=== PATIENT | female | born 1935 | race African-American/Black ===

== ENCOUNTER → 2022-03-21 | Outpatient (CLI) | payer MEDICARE, BC ==
[~2022-03-21] MED LIST: AMLO5TAB4 PO; ASPI-986 PO; EVOL140S2 SQ; LOSA25TA26 PO; MULT-1146 PO
== END | disposition home or self-care (01) ==
LOC: MRI 13:45
PROVIDERS: ATTEND Internal Medicine Nephrology
DX: M75.121 Complete rotator cuff tear or rupture of right shoulder, not specified as traumatic (principal); M25.411 Effusion, right shoulder; M70.22 Olecranon bursitis, left elbow; Y93.89 Activity, other specified
CPT/HCPCS: 73080; 73221

== ENCOUNTER → 2022-03-26 | Outpatient (CLI) | payer MEDICARE, BC | END | disposition home or self-care (01) | LOC: RAD 10:46 | PROVIDERS: ATTEND Orthopaedic Surgery | DX: M25.511 Pain in right shoulder (principal) | CPT/HCPCS: 73030 ==

== ENCOUNTER 2022-05-27 13:44 | Inpatient (IN) | payer MEDICARE, BC ==
[~2022-05-27] VITALS: Ht 157.5 cm; Wt 74.0 kg
[2022-05-27 16:34] LABS: BASOPHILS % 0.3 % (0.0-2.0); EOSINOPHILS % 1.5 % (0.0-5.0); HEMATOCRIT. 42.6 % (36.0-48.0); HEMOGLOBIN. 13.1 g/dL (12.0-16.0); LYMPHOCYTES % 17.1 % (20.0-50.0); MEAN CORPUSCULAR HEMOGLOBIN 26.4 pg (28.0-32.0); MEAN CORPUSCULAR VOLUME 85.6 fL (81.0-99.0); MEAN PLATELET VOLUME 7.7 fl (7.4-10.4); MONOCYTES % 9.1 % (2.0-8.0); PLATELET 214 x1000/uL (130-400); RED BLOOD CELL COUNT 4.97 mill/uL (4.2-5.4); RED CELL DISTRIBUTION WIDTH 18.7 % (11.6-14.6)
[2022-05-27 16:48] LABS: CHLORIDE 113 mEq/L (98-107)
[2022-05-27 18:05] LABS: CLARITY URINE CLEAR (CLEAR); COLOR URINE YELLOW (YELLOW); KETONES URINE NEGATIVE (NEGATIVE); LEUKOCYTE ESTERASE URINE TRACE (NEGATIVE); NITRITE URINE NEGATIVE (NEGATIVE); OCCULT BLOOD URINE 1+ (NEGATIVE); PH URINE 5.5 (4.5-8.0); PROTEIN URINE TRACE (NEGATIVE); SPECIFIC GRAVITY URINE 1.015 (1.005-1.030); UROBILINOGEN URINE 0.2 E.U./dL (0.2-1.0)
[2022-05-27] MEDS: CITRIC ACID/SODIUM CITRATE SOLN 30ML UDC PO SCH (18:15)
[2022-05-27] MEDS ORDERED: ZOLPIDEM TARTRATE 5MG TABLET PO PRN (18:15)
[2022-05-27] MEDS ORDERED: SODIUM POLYSTYRENE SULFONATE 15 G/60 ML BOT PO NR (18:15)
[2022-05-27] MEDS ORDERED: NA PHOS,M-B/NA PHOS,DI-BA ENEMA 118ML PR PRN (18:15)
[2022-05-27] MEDS ORDERED: DOCUSATE SODIUM 100MG CAPSULE PO PRN (18:15)
[2022-05-27] MEDS ORDERED: GUAIFENESIN 200MG/10ML SUGAR FREE UDC PO PRN (18:15)
[2022-05-27] MEDS ORDERED: MAGNESIUM/ALUMINUM HYDROXIDE/SIMETHICONE 30ML UDC PO PRN (18:15)
[2022-05-27] MEDS ORDERED: CLONIDINE 0.1MG TABLET PO PRN (18:15)
[2022-05-27] MEDS ORDERED: IPRATROPIUM/ALBUTEROL 0.5-3(2.5)MG/3ML NEB NEB PRN (18:15)
[2022-05-27] MEDS ORDERED: ONDANSETRON HCL 4MG/2ML INJ IV PRN (18:15)
[2022-05-27] MEDS ORDERED: TRAMADOL 50MG TABLET PO PRN (18:15)
[2022-05-27] MEDS ORDERED: ACETAMINOPHEN 325MG TABLET PO PRN (18:15)
[2022-05-27] MEDS ORDERED: CITRIC ACID/SODIUM CITRATE SOLN 15ML UDC PO SCH (18:15)
[2022-05-27] MEDS ORDERED: NITROGLYCERIN 0.4MG TABLET SL SL PRN (18:15)
[2022-05-27] MEDS: ACETAMINOPHEN 325MG TABLET PO PRN (19:06)
[2022-05-27] MEDS ORDERED: AZITHROMYCIN 500 MG in DEXT 5% WATER 250 ML IV SCH (20:00)
[2022-05-27 20:21] LABS: *AMPHETAMINES SCREEN URINE NEGATIVE (NEGATIVE); *BARBITURATES SCREEN URINE NEGATIVE (NEGATIVE); *BENZODIAZEPINES SCREEN URINE NEGATIVE (NEGATIVE); *COCAINE SCREEN URINE NEGATIVE (NEGATIVE); CANNABINOID URINE SCREEN NEGATIVE (NEGATIVE); METHADONE URINE SCREEN NEGATIVE (NEGATIVE); OPIATES URINE SCREEN NEGATIVE (NEGATIVE); PHENCYCLIDINE URINE SCREEN NEGATIVE (NEGATIVE)
[2022-05-27 20:33] LABS: CREATINE KINASE 48 IU/L (26-192); CREATINE KINASE MB FRACTION < 1.0 ng/mL (0.5-3.6)
[2022-05-27] MEDS ORDERED: ENOXAPARIN 80MG/0.8ML SYR SUBCUT NR (20:35)
[2022-05-27] MEDS: ASCORBIC ACID 500 MG TABLET PO SCH (21:00)
[2022-05-27] MEDS: ATORVASTATIN CALCIUM 20MG TABLET PO SCH (21:00)
[2022-05-27] MEDS: FAMOTIDINE 20MG TABLET PO SCH (21:00)
[2022-05-27] MEDS ORDERED: ENOXAPARIN 30MG/0.3ML SYR SUBCUT SCH (21:00)
[2022-05-27] MEDS: GUAIFENESIN/DM 600MG/30MG ER TAB 12HR PO SCH (21:00)
[2022-05-27] MEDS ORDERED: CEFTRIAXONE 1,000 MG in DEXTROSE 5% WATER 50 ML IV SCH (21:00)
[2022-05-28 00:11] VITALS: BP 144/70
[2022-05-28 06:18] LABS: CHLORIDE 110 mEq/L (98-107)
[2022-05-28 06:21] LABS: CREATINE KINASE MB FRACTION 1.1 ng/mL (0.5-3.6)
[2022-05-28 06:28] LABS: BASOPHILS % 0.5 % (0.0-2.0); EOSINOPHILS % 2.1 % (0.0-5.0); HEMATOCRIT. 35.9 % (36.0-48.0); HEMOGLOBIN. 11.9 g/dL (12.0-16.0); LYMPHOCYTES % 15.9 % (20.0-50.0); MEAN CORPUSCULAR HEMOGLOBIN 27.1 pg (28.0-32.0); MEAN CORPUSCULAR VOLUME 82.3 fL (81.0-99.0); MEAN PLATELET VOLUME 8.2 fl (7.4-10.4); MONOCYTES % 9.8 % (2.0-8.0); NEUTROPHILS % 71.7 % (40.0-76.0); PLATELET 197 x1000/uL (130-400); RED BLOOD CELL COUNT 4.37 mill/uL (4.2-5.4); RED CELL DISTRIBUTION WIDTH 18.4 % (11.6-14.6)
[2022-05-28 06:36] LABS: PHOSPHORUS 3.6 mg/dL (2.5-4.9)
[2022-05-28 08:00] VITALS: BP 123/68
[2022-05-28] MEDS: CITRIC ACID/SODIUM CITRATE SOLN 30ML UDC PO SCH ×3 (09:16→17:00)
[2022-05-28] MEDS: GUAIFENESIN/DM 600MG/30MG ER TAB 12HR PO SCH ×2 (09:17→21:51)
[2022-05-28] MEDS: ASCORBIC ACID 500 MG TABLET PO SCH ×2 (09:17→21:52)
[2022-05-28] MEDS: ZINC SULFATE 220 MG ( 50 ) CAPSULE PO SCH (09:17)
[2022-05-28] MEDS: CHOLECALCIFEROL (D3) 1000 UNIT TABLET PO SCH (09:17)
[2022-05-28] MEDS: AMLODIPINE 10MG TABLET PO SCH (09:23)
[2022-05-28] MEDS: ASPIRIN 325MG EC TABLET PO SCH (09:23)
[2022-05-28 09:47] LABS: T4 FREE 1.04 ng/dL (0.76-1.46)
[2022-05-28] MEDS: LOSARTAN POTASSIUM 50 MG TABLET PO SCH ×2 (11:30→17:00)
[2022-05-28 12:00] VITALS: BP 134/78
[2022-05-28 16:00] VITALS: BP 151/71
[2022-05-28 20:36] VITALS: BP 135/72
[2022-05-28] MEDS ORDERED: ENOXAPARIN 30MG/0.3ML SYR SUBCUT SCH (21:00)
[2022-05-28] MEDS: ENOXAPARIN 80MG/0.8ML SYR SUBCUT SCH (21:52)
[2022-05-28] MEDS: FAMOTIDINE 20MG TABLET PO SCH (21:52)
[2022-05-28] MEDS: ATORVASTATIN CALCIUM 20MG TABLET PO SCH (21:52)
[2022-05-28] MEDS ORDERED: AZITHROMYCIN 500 MG in DEXT 5% WATER 250 ML IV SCH (23:15)
[2022-05-28] MEDS: CEFTRIAXONE 1,000 MG in DEXTROSE 5% WATER 50 ML IV SCH (23:20)
[2022-05-29] VITALS: BP 108/69
[2022-05-29 04:00] VITALS: BP 136/60
[2022-05-29] MEDS ORDERED: NON FORMULARY PATIENT HOME MED XX SCH ×2 (06:00)
[2022-05-29 09:29] LABS: BASOPHILS % 0.4 % (0.0-2.0); EOSINOPHILS % 2.4 % (0.0-5.0); HEMOGLOBIN. 11.9 g/dL (12.0-16.0); LYMPHOCYTES % 15.4 % (20.0-50.0); MEAN CORPUSCULAR HEMOGLOBIN 27.1 pg (28.0-32.0); MEAN CORPUSCULAR VOLUME 81.9 fL (81.0-99.0); MEAN PLATELET VOLUME 7.9 fl (7.4-10.4); MONOCYTES % 9.5 % (2.0-8.0); NEUTROPHILS % 72.3 % (40.0-76.0); PLATELET 195 x1000/uL (130-400); RED CELL DISTRIBUTION WIDTH 17.9 % (11.6-14.6)
[2022-05-29 09:40] LABS: CHLORIDE 109 mEq/L (98-107)
[2022-05-29] MEDS: AMLODIPINE 10MG TABLET PO SCH (09:54)
[2022-05-29] MEDS: ZINC SULFATE 220 MG ( 50 ) CAPSULE PO SCH (09:54)
[2022-05-29] MEDS: KERENDIA 20 MG PO SCH (09:55)
[2022-05-29] MEDS: ASCORBIC ACID 500 MG TABLET PO SCH ×2 (09:55→21:41)
[2022-05-29] MEDS: CITRIC ACID/SODIUM CITRATE SOLN 30ML UDC PO SCH ×3 (09:55→17:12)
[2022-05-29] MEDS: FARXIGA 10MG TABLET PO SCH (09:55)
[2022-05-29] MEDS: ACETAMINOPHEN 325MG TABLET PO PRN ×2 (09:55→17:11)
[2022-05-29] MEDS: ASPIRIN 325MG EC TABLET PO SCH (09:56)
[2022-05-29] MEDS: LOSARTAN POTASSIUM 50 MG TABLET PO SCH ×2 (09:57→17:11)
[2022-05-29] MEDS: CHOLECALCIFEROL (D3) 1000 UNIT TABLET PO SCH (10:07)
[2022-05-29] MEDS: GUAIFENESIN/DM 600MG/30MG ER TAB 12HR PO SCH ×2 (11:12→21:41)
[2022-05-29 12:00] VITALS: BP 135/68
[2022-05-29] MEDS ORDERED: GABAPENTIN 300MG CAPSULE PO SCH (14:30)
[2022-05-29 16:00] VITALS: BP 133/79
[2022-05-29 20:46] VITALS: BP 140/78
[2022-05-29 20:47] VITALS: BP 140/78
[2022-05-29] MEDS: ATORVASTATIN CALCIUM 20MG TABLET PO SCH (21:41)
[2022-05-29] MEDS: ENOXAPARIN 80MG/0.8ML SYR SUBCUT SCH (21:41)
[2022-05-29] MEDS: FAMOTIDINE 20MG TABLET PO SCH (21:41)
[2022-05-29] MEDS: AZITHROMYCIN 500 MG TABLET PO SCH (21:42)
[2022-05-29] MEDS: CEFTRIAXONE 1,000 MG in DEXTROSE 5% WATER 50 ML IV SCH (22:11)
[2022-05-30] VITALS (8 sets, daily range): BP systolic 115–144; BP diastolic 69–83
[2022-05-30] MEDS: ASPIRIN 325MG EC TABLET PO SCH (09:08)
[2022-05-30] MEDS: AMLODIPINE 10MG TABLET PO SCH (09:08)
[2022-05-30] MEDS: ZINC SULFATE 220 MG ( 50 ) CAPSULE PO SCH (09:08)
[2022-05-30] MEDS: ASCORBIC ACID 500 MG TABLET PO SCH ×2 (09:08→21:39)
[2022-05-30] MEDS: LOSARTAN POTASSIUM 50 MG TABLET PO SCH ×2 (09:08→16:43)
[2022-05-30] MEDS: CITRIC ACID/SODIUM CITRATE SOLN 30ML UDC PO SCH ×3 (09:09→16:43)
[2022-05-30] MEDS: GUAIFENESIN/DM 600MG/30MG ER TAB 12HR PO SCH ×2 (09:09→21:39)
[2022-05-30] MEDS: ACETAMINOPHEN 325MG TABLET PO PRN (09:09)
[2022-05-30] MEDS: CHOLECALCIFEROL (D3) 1000 UNIT TABLET PO SCH (09:09)
[2022-05-30] MEDS: KERENDIA 20 MG PO SCH (09:11)
[2022-05-30] MEDS: FARXIGA 10MG TABLET PO SCH (09:11)
[2022-05-30] MEDS: LACTULOSE 20G/30ML UDC PO SCH ×2 (13:45→21:39)
[2022-05-30] MEDS: ENOXAPARIN 80MG/0.8ML SYR SUBCUT SCH (21:38)
[2022-05-30] MEDS: AZITHROMYCIN 500 MG TABLET PO SCH (21:39)
[2022-05-30] MEDS: FAMOTIDINE 20MG TABLET PO SCH (21:39)
[2022-05-30] MEDS: ATORVASTATIN CALCIUM 20MG TABLET PO SCH (21:39)
[2022-05-31] VITALS: BP 137/77
[2022-05-31] MEDS: CEFTRIAXONE 1,000 MG in DEXTROSE 5% WATER 50 ML IV SCH (00:35)
[2022-05-31 04:00] VITALS: BP 131/75
[2022-05-31] MEDS: LACTULOSE 20G/30ML UDC PO SCH (05:06)
[2022-05-31] MEDS ORDERED: LACTULOSE 20G/30ML UDC PO PRN (05:15)
[2022-05-31 08:00] VITALS: BP 133/73
[2022-05-31] MEDS: ASCORBIC ACID 500 MG TABLET PO SCH (09:23)
[2022-05-31] MEDS: CITRIC ACID/SODIUM CITRATE SOLN 30ML UDC PO SCH (09:23)
[2022-05-31] MEDS: CHOLECALCIFEROL (D3) 1000 UNIT TABLET PO SCH (09:23)
[2022-05-31] MEDS: ZINC SULFATE 220 MG ( 50 ) CAPSULE PO SCH (09:23)
[2022-05-31] MEDS: ASPIRIN 325MG EC TABLET PO SCH (09:23)
[2022-05-31] MEDS: AMLODIPINE 10MG TABLET PO SCH (09:24)
[2022-05-31] MEDS: KERENDIA 20 MG PO SCH (09:24)
[2022-05-31] MEDS: FARXIGA 10MG TABLET PO SCH (09:24)
[2022-05-31] MEDS: LOSARTAN POTASSIUM 50 MG TABLET PO SCH (09:24)
[2022-05-31] MEDS ORDERED: FAMO-135 MT (10:09)
[2022-05-31] MEDS ORDERED: APIX2.5T MT (10:09)
[2022-05-31 10:20] VITALS: BP 133/73
== END 2022-05-31 12:50 | disposition home or self-care (01) | DRG 291 ==
LOC: ER 13:44 → EDBEDREQ 17:55 → 7WST 22:40
PROVIDERS: ADMIT Internal Medicine; ATTEND Internal Medicine
DX: I13.0 Hypertensive heart and chronic kidney disease with heart failure and stage 1 through stage 4 chronic kidney disease, or unspecified chronic kidney disease (principal); I50.33 Acute on chronic diastolic (congestive) heart failure; J18.9 Pneumonia, unspecified organism; N17.0 Acute kidney failure with tubular necrosis; I82.411 Acute embolism and thrombosis of right femoral vein; E87.2 Acidosis; E44.1 Mild protein-calorie malnutrition; I69.351 Hemiplegia and hemiparesis following cerebral infarction affecting right dominant side; E87.5 Hyperkalemia; R13.10 Dysphagia, unspecified; E78.00 Pure hypercholesterolemia, unspecified; E87.8 Other disorders of electrolyte and fluid balance, not elsewhere classified; D63.1 Anemia in chronic kidney disease; E11.22 Type 2 diabetes mellitus with diabetic chronic kidney disease; Z20.822 Contact with and (suspected) exposure to COVID-19; F17.200 Nicotine dependence, unspecified, uncomplicated; N18.31 Chronic kidney disease, stage 3a; Z83.3 Family history of diabetes mellitus; Z79.899 Other long term (current) drug therapy; Z90.710 Acquired absence of both cervix and uterus; Z68.29 Body mass index [BMI] 29.0-29.9, adult
CPT/HCPCS: 36415; 70551; 71045; 80048; 80053; 80061; 80305; 81003; 82270; 82550; 82553; 82607; 82746; 83036; 83540; 83550; 83605; 83735; 83880; 84100; 84145; 84439; 84443; 84484; 85025; 86850; 86900; 87426; 93005; 93306; 93970; 97161; 97162; 99285; C9803; J0456; J0696; J1650; J7060

== ENCOUNTER → 2024-02-02 | Outpatient (CLI) | payer MEDICARE, BC ==
[~2024-02-02] MED LIST changes: +APIX2.5T MT; +FAMO-135 MT
== END | disposition home or self-care (01) ==
LOC: PVL 12:38
PROVIDERS: ATTEND Internal Medicine Nephrology
DX: I73.9 Peripheral vascular disease, unspecified (principal)
CPT/HCPCS: 93923

== ENCOUNTER 2025-08-02 12:16 | Emergency (ER) | payer MEDICARE, BC ==
[~2025-08-02] VITALS: Ht 152.4 cm; Wt 68.0 kg
[~2025-08-02 12:16] MED LIST changes: +AMLO10TA80 PO; -AMLO5TAB4 PO; +AMLO5TAB6 PO; +ATOR10TA69 PO; +FINE20TA PO; +LOSA50TA41 PO
[2025-08-02 12:31] VITALS: TEMP 36.9; O2SAT 95
[2025-08-02 12:34] VITALS: O2SAT 99
[2025-08-02] MEDS: LIDOCAINE HCL 1% 20ML VIAL INFIL ONE (14:16)
[2025-08-02 14:44] LABS: BASOPHILS % 0.4 % (0.0-2.0); EOSINOPHILS % 3.5 % (0.0-5.0); HEMATOCRIT. 35.8 % (36.0-48.0); HEMOGLOBIN. 11.1 g/dL (12.0-16.0); LYMPHOCYTES % 19.6 % (20.0-50.0); MEAN PLATELET VOLUME 8.1 fl (7.4-10.4); MONOCYTES % 7.3 % (2.0-8.0); NEUTROPHILS % 69.2 % (40.0-76.0); PLATELET 240 x1000/uL (130-400); RED BLOOD CELL COUNT 4.19 mill/uL (4.2-5.4); RED CELL DISTRIBUTION WIDTH 17.5 % (11.6-14.6)
[2025-08-02 14:53] LABS: CREATININE 1.0 mg/dL (0.6-1.0); UREA NITROGEN BLOOD 12 mg/dL (9-23)
[2025-08-02] MEDS ORDERED: DICL100G58 TP (15:24)
[2025-08-02 15:32] VITALS: BP 125/74; PULSE 82; RESP 16
[2025-08-02] MEDS: KETOROLAC 30MG/ML VIAL IM ONE (15:32)
[2025-08-02] MEDS: HYDROCODONE/ACETAMINOPHEN 5/325MG TABLET PO ONE (15:32)
== END 2025-08-02 16:07 | disposition home or self-care (01) ==
LOC: ER 12:16
DX: M17.12 Unilateral primary osteoarthritis, left knee (principal); E78.00 Pure hypercholesterolemia, unspecified; I10 Essential (primary) hypertension; Z86.73 Personal history of transient ischemic attack (TIA), and cerebral infarction without residual deficits; Z79.899 Other long term (current) drug therapy; Z99.3 Dependence on wheelchair; Z90.710 Acquired absence of both cervix and uterus; Z79.82 Long term (current) use of aspirin; Z79.01 Long term (current) use of anticoagulants
CPT/HCPCS: 99284; 80048; 85025; 36415; 84145; 73562; 96372; J1885; J2003